=== PATIENT | male | born 1985 | race Hispanic/Latino ===

== ENCOUNTER 2018-09-22 05:19 | Emergency (ER) | payer SELFPAY ==
[2018-09-22] MEDS ORDERED: ONDANSETRON 4 MG (ODT) TAB ONE (05:47)
[2018-09-22] MEDS ORDERED: DIPHENHYDRAMINE 50 MG/ML VIAL ONE (05:47)
[2018-09-22] MEDS ORDERED: FAMOTIDINE 20 MG TAB ONE (05:47)
[2018-09-22] MEDS ORDERED: METHYLPREDNISOLONE 125 MG INJ ONE (05:47)
--- NOTE | 2018-09-22 06:24 | EDPHYS ---
Physician Documentation [facility] Name: German Wilson Age: 32 yrs Sex: Male : 1985 Arrival Date: 09/22/2018 Time: 05:22 Bed 5 Private MD: ED Physician Benedict Woodall HPI: 09/22 05:35 This 32 yrs old Male presents to ER via Ambulatory with complaints of Rash. ma2 05:35 The rash is located on the body diffusely. The rash can be described as raised, ma2 urticarial. Onset: The symptoms/episode began/occurred suddenly, 4 hour(s) ago. Associated signs and symptoms: Pertinent negatives: burning sensation, fever, Pain swelling of tongue, wheezing. Severity of symptoms: At their worst the symptoms were moderate in the emergency department the symptoms are unchanged. The patient has experienced similar episodes in the past. Historical: - Allergies: 05:33 NKDA; ao - Home Meds: 05:33 None [Active]; ao - PMHx: 05:33 Pre Diabetes; Hypertension; ao - PSHx: 05:33 None; ao - Immunization history:: Adult Immunizations up to date. - Social history:: Smoking status: Patient uses tobacco products, smokes one-half pack cigarettes per day, Patient/guardian denies using alcohol, street drugs, Patient/guardian denies using The patient lives with family. - Ebola Screening: : Patient negative for fever greater than or equal to 101.5 degrees Fahrenheit, and additional compatible Ebola Virus Disease symptoms Patient denies exposure to infectious person Patient denies travel to an Ebola-affected area in the 21 days before illness onset. - Family history:: not pertinent. ROS: 05:35 Constitutional: Negative for fever, chills, and weight loss, Neck: Negative for injury, ma2 pain, and swelling, Cardiovascular: Negative for chest pain, palpitations, and edema, Respiratory: Negative for shortness of breath, cough, wheezing, and pleuritic chest pain, Abdomen/GI: Negative for abdominal pain, nausea, diarrhea, and constipation, MS/Extremity: Negative for injury and deformity. 05:35 Skin: Positive for rash, Negative for abscesses, diaphoresis, discoloration, erythema. 05:35 All other systems are negative. Exam: 05:35 Constitutional: This is a well developed, well nourished patient who is awake, alert, ma2 and in no acute distress. Chest/axilla: Normal chest wall appearance and motion. Nontender with no deformity. No lesions are appreciated. Cardiovascular: Regular rate and rhythm with a normal S1 and S2. No gallops, murmurs, or rubs. Normal PMI, no JVD. No pulse deficits. Respiratory: Lungs have equal breath sounds bilaterally, clear to auscultation and percussion. No rales, rhonchi or wheezes noted. No increased work of breathing, no retractions or nasal flaring. Abdomen/GI: Soft, non-tender, with normal bowel sounds. No distension or tympany. No guarding or rebound. No evidence of tenderness throughout. 05:35 Skin: rash a moderate rash is noted, diffuse raised hives . Vital Signs: 05:33 BP 127 / 75; Pulse 112; Resp 20; Temp 100.5(O); Pulse Ox 100% ; Weight 129.27 kg; ao Height 5 ft. 8 in. (172.72 cm); Pain 5/10; 06:36 BP 128 / 52; Pulse 100; Resp 18; Temp 99.4(O); Pulse Ox 98% on R/A; tl2 05:33 Body Mass Index 43.33 (129.27 kg, 172.72 cm) ao MDM: 05:35 Differential diagnosis: impetigo, varicella, allergic reaction. Data reviewed: vital ma2 signs, nurses notes. Counseling: I had a detailed discussion with the patient and/or guardian regarding: the historical points, exam findings, and any diagnostic results supporting the discharge/admit diagnosis, the presence of at least one elevated blood pressure reading (>120/80) during this emergency department visit, the need for outpatient follow up. Response to treatment: the patient's symptoms have resolved after treatment. 05:38 Patient medically screened. ma2 Administered Medications: 05:43 Drug: Benadryl 50 mg Route: IM; Site: right deltoid; tl2 06:10 Follow up: Response: No adverse reaction; Marked relief of symptoms tl2 05:43 Drug: MethylPREDNISolone Sodium Succinate 125 mg Route: IM; Site: left deltoid; tl2 06:10 Follow up: Response: No adverse reaction; Marked relief of symptoms tl2 05:43 Drug: Pepcid 20 mg Route: PO; tl2 06:10 Follow up: Response: No adverse reaction; Marked relief of symptoms tl2 05:44 Drug: Zofran 4 mg Route: PO; tl2 06:10 Follow up: Response: No adverse reaction; Marked relief of symptoms tl2 Disposition: 09/22/18 06:23 Discharged to Home. Impression: Allergic contact dermatitis. - Condition is Stable. - Discharge Instructions: Allergies, Adult. - Prescriptions for Benadryl 25 mg Oral Capsule - take 1 capsule by ORAL route every 6 hours As needed; 30 tablet. Medrol (Donaldo) 4 mg Oral Tablets, Dose Pack - take 1 tablet by ORAL route as directed - follow package instructions; 1 packet. Pepcid 20 mg Oral Tablet - take 1 tablet by ORAL route once daily for 10 days; 10 tablet. - Work release form, Medication Reconciliation Form, Thank You Letter, Antibiotic Education, Prescription Opioid Use form. - Follow up: Private Physician; When: Tomorrow; Reason: Continuance of care. - Problem is new. - Symptoms have improved. Signatures: Laron Petit RN RN ao Knox, Taylor, RN RN tl2 Benedict Woodall MD MD ma2 Corrections: (The following items were deleted from the chart) 06:58 06:23 09/22/2018 06:23 Discharged to Home. Impression: Allergic contact dermatitis. tl2 Condition is Stable. Discharge Instructions: Allergies, Adult. Prescriptions for Benadryl 25 mg Oral Capsule - take 1 capsule by ORAL route every 6 hours As needed; 30 tablet, Medrol (Donaldo) 4 mg Oral Tablets, Dose Pack - take 1 tablet by ORAL route as directed - follow package instructions; 1 packet, Pepcid 20 mg Oral Tablet - take 1 tablet by ORAL route once daily for 10 days; 10 tablet. and Forms are Medication Reconciliation Form, Thank You Letter, Antibiotic Education, Prescription Opioid Use. Follow up: Private Physician; When: Tomorrow; Reason: Continuance of care. Problem is new. Symptoms have improved. ma2
--- NOTE | 2018-09-22 06:24 | ER ---
Nurse's Notes [facility] Name: German Wilson Age: 32 yrs Sex: Male : 1985 Arrival Date: 09/22/2018 Time: 05:22 Bed 5 Private MD: Diagnosis: Allergic contact dermatitis Presentation: 09/22 05:31 Presenting complaint: Patient states: Rashes all over for few weeks that come and go. ao This morning patient woke up with rashes and also had nausea and vomiting. Patient reported chills also. Transition of care: patient was not received from another setting of care. Onset of symptoms is unknown. Risk Assessment: Do you want to hurt yourself or someone else? Patient reports no desire to harm self or others. Initial Sepsis Screen: Does the patient meet any 2 criteria? No. Patient's initial sepsis screen is negative. Does the patient have a suspected source of infection? No. Patient's initial sepsis screen is negative. Care prior to arrival: None. 05:31 Method Of Arrival: Ambulatory ao 05:31 Acuity: NICOLE 4 ao Historical: - Allergies: 05:33 NKDA; ao - Home Meds: 05:33 None [Active]; ao - PMHx: 05:33 Pre Diabetes; Hypertension; ao - PSHx: 05:33 None; ao - Immunization history:: Adult Immunizations up to date. - Social history:: Smoking status: Patient uses tobacco products, smokes one-half pack cigarettes per day, Patient/guardian denies using alcohol, street drugs, Patient/guardian denies using The patient lives with family. - Ebola Screening: : Patient negative for fever greater than or equal to 101.5 degrees Fahrenheit, and additional compatible Ebola Virus Disease symptoms Patient denies exposure to infectious person Patient denies travel to an Ebola-affected area in the 21 days before illness onset. - Family history:: not pertinent. Screenin:00 Abuse screen: Denies threats or abuse. Nutritional screening: No deficits noted. tl2 Tuberculosis screening: No symptoms or risk factors identified. Fall Risk None identified. Assessment: 05:34 General: Appears in no apparent distress. comfortable, obese, well groomed, well ao developed, Behavior is calm, cooperative, appropriate for age. Pain: Denies pain. Neuro: Level of Consciousness is awake, alert, obeys commands, Oriented to person, place, time, situation, Appropriate for age Moves all extremities. Full function Speech is normal, Facial symmetry appears normal, Pupils are PERRLA. Cardiovascular: Capillary refill < 3 seconds Patient's skin is warm and dry. Respiratory: Airway is patent Respiratory effort is even, unlabored, Respiratory pattern is regular, symmetrical. GI: Abdomen is obese. : No signs and/or symptoms were reported regarding the genitourinary system. EENT: No signs and/or symptoms were reported regarding the EENT system. Derm: Rash noted that is red, raised, urticaria, on all over the body. Musculoskeletal: Circulation, motion, and sensation intact. Range of motion: intact in all extremities. 06:36 Reassessment: Patient appears in no apparent distress at this time. Patient and/or tl2 family updated on plan of care and expected duration. Pain level reassessed. Patient is alert, oriented x 3, equal unlabored respirations, skin warm/dry/pink. pt verbalized understanding of discharge instructions, need for follow up and prescription usage Patient states feeling better. Patient states symptoms have improved. Vital Signs: 05:33 BP 127 / 75; Pulse 112; Resp 20; Temp 100.5(O); Pulse Ox 100% ; Weight 129.27 kg; ao Height 5 ft. 8 in. (172.72 cm); Pain 5/10; 06:36 BP 128 / 52; Pulse 100; Resp 18; Temp 99.4(O); Pulse Ox 98% on R/A; tl2 05:33 Body Mass Index 43.33 (129.27 kg, 172.72 cm) ao ED Course: 05:22 Patient arrived in ED. ag3 05:24 Fredy Rolle, RN is Primary Nurse. jb4 05:30 Jaja Wall, LLOYD is Primary Nurse. tl2 05:33 Triage completed. ao 05:34 Benedict Woodall MD is Attending Physician. ma2 05:34 Arm band placed on right wrist. Patient placed in an exam room, on a stretcher, on ao pulse oximetry. 05:37 Primary Nurse role handed off by Jaja Wall, LLOYD ao 05:37 Laron Petit RN is Primary Nurse. ao 06:00 Patient has correct armband on for positive identification. Placed in gown. Bed in low tl2 position. Call light in reach. Side rails up X 1. Adult w/ patient. 06:00 No provider procedures requiring assistance completed. Patient did not have IV access tl2 during this emergency room visit. Administered Medications: 05:43 Drug: Benadryl 50 mg Route: IM; Site: right deltoid; tl2 06:10 Follow up: Response: No adverse reaction; Marked relief of symptoms tl2 05:43 Drug: MethylPREDNISolone Sodium Succinate 125 mg Route: IM; Site: left deltoid; tl2 06:10 Follow up: Response: No adverse reaction; Marked relief of symptoms tl2 05:43 Drug: Pepcid 20 mg Route: PO; tl2 06:10 Follow up: Response: No adverse reaction; Marked relief of symptoms tl2 05:44 Drug: Zofran 4 mg Route: PO; tl2 06:10 Follow up: Response: No adverse reaction; Marked relief of symptoms tl2 Outcome: 06:23 Discharge ordered by . ma2 06:23 Discharged to home ambulatory, with family. tl2 06:23 Condition: stable 06:23 Discharge instructions given to patient, Instructed on discharge instructions, follow up and referral plans. medication usage, Demonstrated understanding of instructions, follow-up care, medications, Prescriptions given X 3. 06:37 Discharged to home ambulatory, with family. tl2 06:37 Condition: stable 06:37 Discharge instructions given to 06:58 Patient left the ED. tl2 Signatures: Laron Petit RN Jaja Cardona RN RN tl2 Fredy Rolle RN RN jb4 Alzahri, Mohammad, MD MD ma2 Tanya Mota ag3
[2018-09-22 07:05] VITALS: BP 128/52; TEMP 99.4; O2SAT 98
== END 2018-09-22 06:58 | disposition home or self-care (01) ==
LOC: ER 05:19
DX: L23.9 Allergic contact dermatitis, unspecified cause (principal); I10 Essential (primary) hypertension; F17.210 Nicotine dependence, cigarettes, uncomplicated
CPT/HCPCS: 96372; 99283; J2930

== ENCOUNTER 2019-09-02 17:07 | Emergency (ER) | payer BC, SELFPAY ==
[2019-09-02 18:06] LABS: Protime INR 1.01
[2019-09-02 18:08] LABS: Absolute Lymphocytes (CBC) 2.7 K/uL (0.7-4.9); Basophils % 0.8 % (0-1.3); Hematocrit 45.5 % (39.6-49.0); Lymphocytes % 22.8 % (15.3-44.8); MPV 8.8 fL (7.6-11.3); RBC Red Blood Cell Count 5.46 M/uL (4.33-5.43)
[2019-09-02 18:25] LABS: ALT/SGPT 21 U/L (12-78); AST/SGOT 8 U/L (15-37); Albumin 3.7 g/dL (3.4-5.0); Alkaline Phosphatase 60 U/L (45-117); BUN Blood Urea Nitrogen 10 mg/dL (7-18); Bicarbonate 29 mmol/L (21-32); Bilirubin Direct 0.1 mg/dL (0-0.2); Bilirubin Total 0.3 mg/dL (0.2-1.0); Glucose Level 112 mg/dL (74-106); Magnesium 2.1 mg/dL (1.8-2.4); NT PRO-BNP 232 pg/mL (<125); Potassium 3.6 mmol/L (3.5-5.1); Protein, Total 7.3 g/dL (6.4-8.2); Sodium Level 141 mmol/L (136-145); Troponin (Emerg Dept Use Only) < 0.02 ng/mL (0.0-0.045)
--- NOTE | 2019-09-02 18:48 | ER ---
Nurse's Notes [facility] Name: German Wilson Age: 33 yrs Sex: Male : 1985 Arrival Date: 09/02/2019 Time: 17:10 Bed 8 Private MD: Diagnosis: Chest pain, unspecified Presentation: 09/02 17:11 Presenting complaint: Patient states: Chest tightness since yesterday. Denies cough, aj1 congestion, fever. Denies shortness of breath. Transition of care: patient was not received from another setting of care. Onset of symptoms was September 01, 2019. Risk Assessment: Do you want to hurt yourself or someone else? Patient reports no desire to harm self or others. Initial Sepsis Screen: Does the patient meet any 2 criteria? No. Patient's initial sepsis screen is negative. Does the patient have a suspected source of infection? No. Patient's initial sepsis screen is negative. Care prior to arrival: None. 17:11 Method Of Arrival: Ambulatory aj 17:11 Acuity: NICOLE 3 aj1 Triage Assessment: 17:13 General: Appears in no apparent distress. comfortable, Behavior is calm, cooperative, aj1 appropriate for age. Pain: Complains of pain in mid-sternal area Pain does not radiate. Pain currently is 7 out of 10 on a pain scale. Quality of pain is described as tightness Pain began yesterday Is episodic, Aggravated by laying down, smoking. Neuro: Level of Consciousness is awake, alert, obeys commands. Cardiovascular: Reports chest pain, nausea, Denies palpitations, shortness of breath, syncope, Patient's skin is warm and dry. Respiratory: Airway is patent Respiratory effort is even, unlabored, Respiratory pattern is regular, symmetrical, Denies cough, shortness of breath. Historical: - Allergies: 17:13 NKDA; aj1 - Home Meds: 17:13 None [Active]; aj1 - PMHx: 17:13 Hypertension; Pre Diabetes; aj1 - PSHx: 17:13 None; aj1 - Immunization history:: Flu vaccine is not up to date. - Social history:: Smoking status: Patient uses tobacco products, smokes one-half pack cigarettes per day. - Ebola Screening: : Patient denies travel to an Ebola-affected area in the 21 days before illness onset. Screenin:58 Abuse screen: Denies threats or abuse. Denies injuries from another. Nutritional jl7 screening: No deficits noted. Tuberculosis screening: No symptoms or risk factors identified. Fall Risk IV access (20 points). Total Rudolph Fall Scale indicates No Risk (0-24 pts). Assessment: 17:58 General: Appears in no apparent distress. uncomfortable, Behavior is calm, cooperative, jl7 appropriate for age. Pain: Complains of pain in mid-sternal area Pain does not radiate. Pain currently is 0 out of 10 on a pain scale. at worst was 8 out of 10 on a pain scale. Quality of pain is described as pressure, squeezing, Pain began 2-3 days ago. Is intermittent. Neuro: Level of Consciousness is awake, alert, obeys commands, Oriented to person, place, time, situation. Cardiovascular: Heart tones present Patient's skin is warm and dry. Respiratory: Airway is patent Respiratory effort is even, unlabored, Respiratory pattern is regular, symmetrical. Derm: Skin is dry, Skin is normal, Skin temperature is warm. Vital Signs: 17:13 BP 171 / 99; Pulse 79; Resp 18; Temp 98.7; Pulse Ox 98% on R/A; Weight 131.54 kg (R); aj1 Height 5 ft. 10 in. (177.80 cm) (R); Pain 7/10; 17:58 BP 168 / 91; Pulse 81; Resp 17 S; Pulse Ox 98% on R/A; Pain 0/10; jl7 17:13 Body Mass Index 41.61 (131.54 kg, 177.80 cm) aj1 ED Course: 17:10 Patient arrived in ED. mr 17:13 Triage completed. aj1 17:13 Arm band placed on Patient placed in waiting room. EKG completed in triage. Results aj1 shown to MD. 17:32 Joe Braga, LLOYD is Primary Nurse. jl7 17:38 Cuauhtemoc Luna NP is PHCP. pm1 17:38 Benedict Woodall MD is Attending Physician. pm1 17:43 Chest Pa And Lat (2 Views) XRAY In Process Unspecified. EDMS 17:58 Patient has correct armband on for positive identification. Placed in gown. Bed in low jl7 position. Call light in reach. Side rails up X 1. quality assurance monitor final on. Pulse ox on. NIBP on. Warm blanket given. 17:58 Initial lab(s) drawn, by me, sent to lab. Inserted saline lock: 22 gauge in right jl7 antecubital area, using aseptic technique. Blood collected. Patient maintains SpO2 saturation greater than 95% on room air. 19:03 No provider procedures requiring assistance completed. IV discontinued, intact, jl7 bleeding controlled, No redness/swelling at site. Pressure dressing applied. Administered Medications: 18:54 Drug: Pepcid 20 mg Route: IVP; Site: right antecubital; jl7 19:03 Follow up: Response: No adverse reaction jl7 18:55 Drug: GI Cocktail without - (Maalox Suspension 30 ml, Lidocaine Liquid 2 % 15 jl7 ml) Route: PO; 19:03 Follow up: Response: No adverse reaction jl7 Outcome: 18:48 Discharge ordered by . pm1 19:03 Discharged to home ambulatory. jl7 19:03 Condition: stable 19:03 Discharge instructions given to patient, family, Instructed on discharge instructions, follow up and referral plans. medication usage, Demonstrated understanding of instructions, follow-up care, medications, Prescriptions given X 1. 19:04 Patient left the ED. jl7 Signatures: Dispatcher [employer] EDUma Alcocer, LLOYD RN aj1 Johnna López Patrick, CLINICAL COURIER CLINICAL COURIER pm1 Joe Braga RN RN jl7
--- NOTE | 2019-09-02 18:48 | EDPHYS ---
Physician Documentation [facility] Name: German Wilson Age: 33 yrs Sex: Male : 1985 Arrival Date: 09/02/2019 Time: 17:10 Bed 8 Private MD: ED Physician Benedict Woodall HPI: 09/02 18:40 This 33 yrs old Male presents to ER via Ambulatory with complaints of Chest pm1 Pain. 18:40 The patient or guardian reports chest pain that is located primarily in the substernal pm1 area. The pain does not radiate. Associated signs and symptoms: The patient has no apparent associated signs or symptoms, Pertinent negatives: abdominal pain, dizziness, headache, nausea, palpitations, shortness of breath, vomiting. The chest pain is described as burning. Duration: The patient or guardian reports multiple episodes. Modifying factors: The symptoms are alleviated by possibly Tums. the symptoms are aggravated by Lying down. Severity of pain: in the emergency department the pain has improved markedly. The patient has not experienced similar symptoms in the past. The patient has not recently seen a physician. Historical: - Allergies: 17:13 NKDA; aj1 - Home Meds: 17:13 None [Active]; aj1 - PMHx: 17:13 Hypertension; Pre Diabetes; aj1 - PSHx: 17:13 None; aj1 - Immunization history:: Flu vaccine is not up to date. - Social history:: Smoking status: Patient uses tobacco products, smokes one-half pack cigarettes per day. - Ebola Screening: : Patient denies travel to an Ebola-affected area in the 21 days before illness onset. ROS: 18:40 Constitutional: Negative for fever, chills, and weight loss, Eyes: Negative for injury, pm1 pain, redness, and discharge, ENT: Negative for injury, pain, and discharge, Neck: Negative for injury, pain, and swelling. 18:40 Respiratory: Negative for shortness of breath, cough, wheezing, and pleuritic chest pain, Abdomen/GI: Negative for abdominal pain, nausea, vomiting, diarrhea, and constipation, Back: Negative for injury and pain, MS/Extremity: Negative for injury and deformity, Skin: Negative for injury, rash, and discoloration, Neuro: Negative for headache, weakness, numbness, tingling, and seizure. 18:40 Cardiovascular: Positive for chest pain, Negative for edema, palpitations. Exam: 18:40 Constitutional: This is a well developed, well nourished patient who is awake, alert, pm1 and in no acute distress. Head/Face: Normocephalic, atraumatic. Neck: Trachea midline, no thyromegaly or masses palpated, and no cervical lymphadenopathy. Supple, full range of motion without nuchal rigidity, or vertebral point tenderness. No Meningismus. Chest/axilla: Normal chest wall appearance and motion. Nontender with no deformity. No lesions are appreciated. Cardiovascular: Regular rate and rhythm with a normal S1 and S2. No gallops, murmurs, or rubs. Normal PMI, no JVD. No pulse deficits. Respiratory: Lungs have equal breath sounds bilaterally, clear to auscultation and percussion. No rales, rhonchi or wheezes noted. No increased work of breathing, no retractions or nasal flaring. Abdomen/GI: Soft, non-tender, with normal bowel sounds. No distension or tympany. No guarding or rebound. No evidence of tenderness throughout. Back: No spinal tenderness. No costovertebral tenderness. Full range of motion. Skin: Warm, dry with normal turgor. Normal color with no rashes, no lesions, and no evidence of cellulitis. MS/ Extremity: Pulses equal, no cyanosis. Neurovascular intact. Full, normal range of motion. 18:40 Neuro: Orientation: is normal, Motor: is normal, moves all fours, Sensation: is normal, no obvious gross deficits. Vital Signs: 17:13 BP 171 / 99; Pulse 79; Resp 18; Temp 98.7; Pulse Ox 98% on R/A; Weight 131.54 kg (R); aj1 Height 5 ft. 10 in. (177.80 cm) (R); Pain 7/10; 17:58 BP 168 / 91; Pulse 81; Resp 17 S; Pulse Ox 98% on R/A; Pain 0/10; jl7 17:13 Body Mass Index 41.61 (131.54 kg, 177.80 cm) aj1 MDM: 17:38 Patient medically screened. pm1 18:47 Data reviewed: vital signs. Data interpreted: Pulse oximetry: on room air is 98 %. pm1 Interpretation: normal. Counseling: I had a detailed discussion with the patient and/or guardian regarding: the historical points, exam findings, and any diagnostic results supporting the discharge/admit diagnosis, lab results, radiology results, the need for outpatient follow up, to return to the emergency department if symptoms worsen or persist or if there are any questions or concerns that arise at home. 09/02 17:40 Order name: Basic Metabolic Panel; Complete Time: 18:37 pm1 09/02 17:40 Order name: CBC with Diff; Complete Time: 18:37 pm1 09/02 17:40 Order name: LFT's; Complete Time: 18:37 pm1 09/02 17:40 Order name: Magnesium; Complete Time: 18:37 pm1 09/02 17:40 Order name: NT PRO-BNP; Complete Time: 18:37 pm1 09/02 17:40 Order name: PT-INR; Complete Time: 18:37 pm1 09/02 17:24 Order name: EKG - Nurse/Tech; Complete Time: 17:24 [facility] 09/02 17:24 Order name: Chest Pa And Lat (2 Views) XRAY [facility] 09/02 17:40 Order name: Troponin (emerg Dept Use Only); Complete Time: 18:37 pm1 09/02 17:40 Order name: EKG; Complete Time: 17:41 pm1 09/02 17:40 Order name: Cardiac monitoring; Complete Time: 18:01 pm1 09/02 17:40 Order name: IV Saline Lock; Complete Time: 18:01 pm1 09/02 17:40 Order name: Labs collected and sent; Complete Time: 18:02 pm1 09/02 17:40 Order name: O2 Per Protocol; Complete Time: 18:02 pm1 09/02 17:40 Order name: O2 Sat Monitoring; Complete Time: 18:02 pm1 Administered Medications: 18:54 Drug: Pepcid 20 mg Route: IVP; Site: right antecubital; jl7 19:03 Follow up: Response: No adverse reaction jl7 18:55 Drug: GI Cocktail without - (Maalox Suspension 30 ml, Lidocaine Liquid 2 % 15 jl7 ml) Route: PO; 19:03 Follow up: Response: No adverse reaction jl7 Disposition: 09/02/19 18:48 Discharged to Home. Impression: Chest pain, unspecified. - Condition is Stable. - Discharge Instructions: Nonspecific Chest Pain. - Prescriptions for Pepcid 20 mg Oral Tablet - take 1 tablet by ORAL route every 12 hours for 10 days; 20 tablet. - Medication Reconciliation Form, Thank You Letter, Antibiotic Education, Prescription Opioid Use form. - Follow up: Emergency Department; When: As needed; Reason: Worsening of condition. Follow up: Private Physician; When: 2 - 3 days; Reason: Recheck today's complaints, Continuance of care, Re-evaluation by your physician. - Problem is new. - Symptoms have improved. Addendum: 09/04/2019 15:15 Co-signature as Attending Physician, Benedict Woodall MD. m a2 Signatures: Dispatcher [employer] EDUma Alcocer RN RN aj1 Cuauhtemoc Luna, VALVE SEATER OPERATOR VALVE SEATER OPERATOR pm1 Joe Braga RN RN jl7 Benedict Woodall MD MD ma2 Corrections: (The following items were deleted from the chart) 09/02 19:04 18:48 09/02/2019 18:48 Discharged to Home. Impression: Chest pain, unspecified. jl7 Condition is Stable. Forms are Medication Reconciliation Form, Thank You Letter, Antibiotic Education, Prescription Opioid Use. Follow up: Emergency Department; When: As needed; Reason: Worsening of condition. Follow up: Private Physician; When: 2 - 3 days; Reason: Recheck today's complaints, Continuance of care, Re-evaluation by your physician. Problem is new. Symptoms have improved. pm1
[2019-09-02] MEDS ORDERED: FAMOTIDINE 20 MG/2 ML VIAL IV ONE (18:51)
[2019-09-02] MEDS ORDERED: LIDOCAINE VISCOUS 2% SOLN 15 ML UDC ONE (18:51)
[2019-09-02] MEDS ORDERED: MAGNE/ALUM HYDROXD 30 ML UCUP ONE (18:51)
--- NOTE | 2019-09-02 19:06 | RAD REPORT ---
EXAM DESCRIPTION: Felicia Ramos (2 Views)09/02/2019 5:45 pm CLINICAL HISTORY: Chest pain COMPARISON: None FINDINGS: The lungs appear clear of acute infiltrate. The heart is normal size IMPRESSION: No acute abnormalities displayed
[2019-09-02 20:11] VITALS: TEMP 98.7; O2SAT 98
[2019-09-02 20:13] VITALS: BP 168/91
--- NOTE | 2019-09-04 20:51 | EKG ---
Test Date: 2019-09-02 Test Time: 17:20:09 Prospect Manager: JONH MEASUREMENT RESULTS: Intervals: Rate: 83 IN: 164 QRSD: 102 QT: 376 QTc: 441 [place]: P: 44 IN: 164 QRS: 82 T: -39 INTERPRETIVE STATEMENTS: Sinus rhythm with marked sinus arrhythmia with occasional premature ventricular complexes ST & T wave abnormality, consider inferolateral ischemia Abnormal ECG Compared to ECG 07/22/2004 22:03:00 Ventricular premature complex(es) now present ST (T wave) deviation now present Possible ischemia now present Electronically Signed On 09-04-19 20:47:06 [employer] PROFESSOR by Kulwant Stanton
== END 2019-09-02 19:04 | disposition home or self-care (01) ==
LOC: ER 17:07
DX: R07.9 Chest pain, unspecified (principal); F17.210 Nicotine dependence, cigarettes, uncomplicated
CPT/HCPCS: 36415; 71046; 80048; 80076; 83735; 83880; 84484; 85025; 85610; 93005; 96374; 99285